=== PATIENT | female | born 1995 ===

== ENCOUNTER 2019-05-06 07:29 | Emergency (ER) | payer MEDICAID, OTHER ==
[~2019-05-06] VITALS: Ht 162.6 cm; Wt 79.4 kg
[2019-05-06 07:33] VITALS: BP 113/69
--- NOTE | 2019-05-06 07:45 | NUR ---
5 WKS 24 YR OLD AAO X4 PT [facility]IB [facility] AMB[facility]ATES TO BED 7 C/O NAUSEA,LOWER ABDOMINAL PAIN & LOWER BACK PAIN X 3 DAYS. DENIES DYSURIA. LMP 03/29/19. MED HX:DENIES
--- NOTE | 2019-05-06 08:28 | NUR ---
PATIENT TAKEN FOR ULTRASOUND VIA WHEELCHAIR.
[2019-05-06 09:04] LABS: BASOPHILS % (AUTO) 0.5 % (0.0-2.0); EOSINOPHILS # (AUTO) 0.3 K/uL (0-0.4); EOSINOPHILS % (AUTO) 2.9 % (0.0-4.0); HEMATOCRIT 38.3 % (36-48); HEMOGLOBIN 12.7 g/dL (12.0-16.0); MEAN CORPUSCULAR HEMOGLOBIN 31 pg (27-31); MEAN CORPUSCULAR HGB CONC 33 g/dL (33-37); MEAN CORPUSCULAR VOLUME 92.4 fL (80-94); MONOCYTES # (AUTO) 0.6 K/uL (0.8-1.0); MONOCYTES % (AUTO) 6.5 % (1.7-9.3); NEUTROPHILS # (AUTO) 5.9 K/uL (1.8-7.7); NEUTROPHILS % (AUTO) 67.1 % (42.2-75.2); PLATELET COUNT (AUTO) 205 K/uL (140-450); RED BLOOD CELL COUNT(AUTO) 4.15 MIL/uL (4.20-5.40); RED CELL DISTRIBUTION WIDTH 13.9 % (11.6-13.7); WHITE BLOOD COUNT (AUTO) 8.7 K/uL (4.8-10.8)
[2019-05-06 09:25] LABS: APPEARANCE,URINE CLEAR (CLEAR); BILIRUBIN,URINE NEGATIVE (NEGATIVE); BLOOD, URINE 1+ (NEGATIVE); COLOR,URINE YELLOW (YELLOW); LEUKOCYTE ESTERASE ,URINE 1+ (NEGATIVE); NITRITE, URINE NEGATIVE (NEGATIVE); PH,URINE 8.5 (5.0-9.0); UGLUCOSE NEGATIVE (NEGATIVE)
[2019-05-06 09:38] LABS: ANION GAP 12.4 (8-16); CARBON DIOXIDE 25.5 mmol/L (21-32); POTASSIUM 3.9 mmol/L (3.5-5.1)
[2019-05-06 09:39] LABS: CREATININE 0.8 mg/dL (0.6-1.3)
[2019-05-06 09:49] LABS: RBC,URINE 0-5 /HPF (0-5)
[2019-05-06 10:20] VITALS: BP 136/84
--- NOTE | 2019-05-06 10:20 | NUR ---
Patient discharged with v/s stable. Written and verbal after care instructions given and explained. Patient alert, oriented and verbalized understanding of instructions. Ambulatory with steady gait. All questions addressed prior to discharge. ID band removed. Patient advised to follow up with PMD. Rx of Macrobid, Motrin given. Patient educated on indication of medication including possible reaction and side effects. Opportunity to ask questions provided and answered. Pt accompanied by .
== END 2019-05-06 10:20 | disposition home or self-care (01) ==
LOC: MED 07:29
DX: O23.41 Unspecified infection of urinary tract in pregnancy, first trimester (principal); O26.891 Other specified pregnancy related conditions, first trimester; R10.30 Lower abdominal pain, unspecified; Z3A.08 8 weeks gestation of pregnancy
CPT/HCPCS: 36415; 76801; 80048; 81001; 81025; 84702; 85025; 86900; 86901; 87086; 87186; 99284; Q0092

== ENCOUNTER 2019-05-27 20:10 | Emergency (ER) | payer MEDICAID ==
[~2019-05-27] VITALS: Ht 162.6 cm; Wt 78.9 kg
[2019-05-27 20:30] VITALS: BP 116/68
--- NOTE | 2019-05-27 20:35 | NUR ---
TO BED # 06 AMBULATORY
--- NOTE | 2019-05-27 20:45 | NUR ---
PT C/O LOWER ABD/LOWER BACK PAIN X2 WEEKS WITH SCANT VAGINAL BLEEDING X 2 DAYS. RATES PAIN 09/15. PT STATES SHE VISUALIZES BLOOD AFTER URINATION. PT STATES SHE HAD AN U/S ABOUT A MONTH AGO. LMP-04/01/2019 [facility]- NONE [facility]
--- NOTE | 2019-05-27 21:33 | NUR ---
BLOOD COLLECTED AND SENT TO LAB.
--- NOTE | 2019-05-27 21:36 | NUR ---
ULTRASOUND AT BEDSIDE
[2019-05-27 21:41] LABS: BASOPHILS # (AUTO) 0.1 K/uL (0.00-0.22); BASOPHILS % (AUTO) 0.5 % (0.0-2.0); EOSINOPHILS # (AUTO) 0.2 K/uL (0-0.4); EOSINOPHILS % (AUTO) 1.8 % (0.0-4.0); HEMATOCRIT 35.2 % (36-48); HEMOGLOBIN 12.3 g/dL (12.0-16.0); LYMPHOCYTES % (AUTO) 26.3 % (20.5-51.1); MEAN CORPUSCULAR HEMOGLOBIN 31 pg (27-31); MEAN CORPUSCULAR HGB CONC 35 g/dL (33-37); MEAN CORPUSCULAR VOLUME 89.7 fL (80-94); MONOCYTES # (AUTO) 0.7 K/uL (0.8-1.0); MONOCYTES % (AUTO) 6.2 % (1.7-9.3); NEUTROPHILS # (AUTO) 7.4 K/uL (1.8-7.7); NEUTROPHILS % (AUTO) 65.2 % (42.2-75.2); PLATELET COUNT (AUTO) 184 K/uL (140-450); RED BLOOD CELL COUNT(AUTO) 3.93 MIL/uL (4.20-5.40); RED CELL DISTRIBUTION WIDTH 13.9 % (11.6-13.7); WHITE BLOOD COUNT (AUTO) 11.4 K/uL (4.8-10.8)
[2019-05-27 21:43] LABS: APPEARANCE,URINE SL CLOUDY (CLEAR); BILIRUBIN,URINE NEGATIVE (NEGATIVE); BLOOD, URINE 3+ (NEGATIVE); COLOR,URINE YELLOW (YELLOW); LEUKOCYTE ESTERASE ,URINE 2+ (NEGATIVE); NITRITE, URINE NEGATIVE (NEGATIVE); PH,URINE 6.5 (5.0-9.0); UGLUCOSE NEGATIVE (NEGATIVE)
[2019-05-27 21:56] LABS: RBC,URINE 11-20 (MOD) /HPF (0-5); WBC,URINE 20-60 /HPF (0-5)
--- NOTE | 2019-05-28 00:16 | NUR ---
mary kay corrigan at bedside with tawana, charge nurse doing pelvic exam.
[2019-05-28 00:36] VITALS: BP 107/54
--- NOTE | 2019-05-28 00:38 | NUR ---
Patient discharged with v/s stable. Written and verbal after care instructions given and explained. Patient verbalized understanding. Ambulatory with steady gait. All questions addressed prior to discharge. Advised to follow up with PMD.
== END 2019-05-28 00:36 | disposition home or self-care (01) ==
LOC: MED 20:10
DX: O20.0 Threatened abortion (principal); Z3A.08 8 weeks gestation of pregnancy
CPT/HCPCS: 36415; 76817; 81001; 81025; 84702; 85025; 86900; 86901; 87086; 99284; Q0092

== ENCOUNTER 2019-11-13 12:07 | Emergency (ER) | payer MEDICAID ==
[~2019-11-13] VITALS: Ht 162.6 cm; Wt 93.0 kg
[2019-11-13 12:12] VITALS: BP 99/60
--- NOTE | 2019-11-13 12:13 | NUR ---
Patient to bed 11. RN evaluating patient at bedside.
--- NOTE | 2019-11-13 12:25 | NUR ---
pt up to restroom this morning [id number] rolled ankle , right---swelling tender
--- NOTE | 2019-11-13 12:36 | NUR ---
technician helper instrument at bedside.
[2019-11-13] MEDS ORDERED: ACETAMINOPHEN EXTRA STRENGTH 500 MG TAB PO ONE (13:20)
[2019-11-13] MEDS ORDERED: IBUPROFEN 600 MG TAB PO ONE (13:20)
[2019-11-13 14:23] VITALS: BP 127/86
--- NOTE | 2019-11-13 14:24 | NUR ---
Patient discharged with v/s stable. Written and verbal after care instructions given and explained. Patient alert, oriented and verbalized understanding of instructions. Ambulatory with steady gait. All questions addressed prior to discharge. ID band removed. Patient advised to follow up with PMD. Rx of naproxyn given. Patient educated on indication of medication including possible reaction and side effects. Opportunity to ask questions provided and answered.
== END 2019-11-13 14:24 | disposition home or self-care (01) ==
LOC: MED 12:07
DX: S93.401A Sprain of unspecified ligament of right ankle, initial encounter (principal); X50.1XXA Overexertion from prolonged static or awkward postures, initial encounter; Y93.01 Activity, walking, marching and hiking; Y92.89 Other specified places as the place of occurrence of the external cause; Y99.8 Other external cause status
CPT/HCPCS: 73610; 99283; Q0092

== ENCOUNTER 2021-02-18 05:35 | Emergency (ER) | payer MEDICAID, OTHER ==
[~2021-02-18] VITALS: Ht 162.6 cm; Wt 73.9 kg
[2021-02-18 05:37] VITALS: BP 115/73
--- NOTE | 2021-02-18 05:41 | NUR ---
PT BROUGHT TO BED 4 VIA [facility] GROSS
[2021-02-18] MEDS ORDERED: IBUPROFEN 800 MG TAB PO ONE (05:45)
--- NOTE | 2021-02-18 06:05 | NUR ---
OBSERVED PT AMBULATE TO BATHROOM. PT IS ABLE TO AMBULATE WITHOUT ASSISTANCE.
--- NOTE | 2021-02-18 06:18 | NUR ---
PT TAKEN TO RAD AT 0612
[2021-02-18] MEDS ORDERED: IBUP-2218 PO (06:54)
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
[2021-02-18 07:05] VITALS: BP 115/73
--- NOTE | 2021-02-18 07:05 | NUR ---
The patient's care was reviewed and supervised by Coreen Gregory RN, RN.
--- NOTE | 2021-02-18 07:05 | NUR ---
Patient discharged with v/s stable. Written and verbal after care instructions given and explained. Patient alert, oriented and verbalized understanding of instructions. Ambulatory with steady gait. All questions addressed prior to discharge. ID band removed. Patient advised to follow up with PMD. Rx of IBUPROFEN given. Opportunity to ask questions provided and answered.
== END 2021-02-18 07:05 | disposition home or self-care (01) ==
LOC: MED 05:35
DX: M54.2 Cervicalgia (principal)
CPT/HCPCS: 72050; 81025; 99283